=== PATIENT | male | born 1980 | race African-American/Black ===

== ENCOUNTER 2016-07-11 19:11 | Emergency (ER) | payer OTHER ==
[~2016-07-11] VITALS: Ht 185.4 cm; Wt 79.5 kg
[2016-07-11 19:47] LABS: HEMATOCRIT 39.9 % (38.0-50.0); MCHC 33.3 G/DL (30.0-36.0); MEAN PLAT.VOLUME 12.6 uM^3 (9.0-12.4); PLATELET COUNT 160 K/uL (156-360); RBC DIS.WIDTH-SD 37.3 % (39-53); RED BLOOD COUNT 4.29 M/uL (4.00-5.50); WHITE BLOOD COUNT 14.9 K/uL (4.1-10.2)
[2016-07-11 19:55] LABS: CHLORIDE 107 mEq/L (99-109); POTASSIUM 3.4 mEq/L (3.7-5.4); SODIUM 141 mEq/L (136-147)
[2016-07-11 19:56] LABS: GLUCOSE 95 mg/dL (70-99)
[2016-07-11 19:58] LABS: ANION GAP 7 MEQ/L (2-14)
[2016-07-11 20:00] LABS: GFR ESTIMATE (CALCULATED) > 59 mL/min/
[2016-07-11 20:01] LABS: UREA NITROGEN (BUN) 15 mg/dL (9-23)
[2016-07-11] MEDS ORDERED: KEFLEX500 MG PO (22:01)
[2016-07-11 22:29] VITALS: BP 136/76
== END 2016-07-11 22:41 ==
LOC: EME → EDBD 19:11 → EME 19:11
PROVIDERS: Emergency Medicine
DX: S02.2XXA Fracture of nasal bones, initial encounter for closed fracture (principal); S01.512A Laceration without foreign body of oral cavity, initial encounter; S22.31XA Fracture of one rib, right side, initial encounter for closed fracture; W50.0XXA Accidental hit or strike by another person, initial encounter; Y93.84 Activity, sleeping; Y92.149 Unspecified place in prison as the place of occurrence of the external cause
CPT/HCPCS: 70450; 70486; 71250; 72125; 74176; 80048; 85027; 99281; 99284